=== PATIENT | female | born 1985 | race Caucasian/White ===

== ENCOUNTER → 2018-05-13 | Outpatient (CLI) | payer OTHER ==
--- NOTE | 2018-05-13 09:07 | KCIC ---
Right upper quadrant ultrasound 05/13/2018 INDICATION: Abnormal LFTs COMPARISON STUDY: None FINDINGS: The pancreas is partially visualized. Visualized portions of the pancreas are grossly unremarkable. Visualized portions of the aorta and IVC are unremarkable. The liver is partially obscured. Portal venous flow appears to be in the normal direction. Common duct is mildly prominent measuring between 5 and 6 mm in diameter. Cholelithiasis is noted. No evidence of gallbladder wall thickening or pericholecystic fluid is identified. The liver is normal in size measuring 16.5 cm longitudinally. The liver is mildly diffusely echogenic. A component of hepatic steatosis cannot be excluded. The right kidney measures 10.9 cm in length and is normal in appearance. IMPRESSION: 1. Cholelithiasis without evidence of cholecystitis 2. Mildly increase in hepatic echogenicity. Mild hepatic steatosis not excluded 3. Mild prominence of the common bile duct, nonspecific. Correlate with serum bilirubin levels as clinically indicated. Electronically signed by: Joseluis Roberto MD (05/13/2018 9:04 AM) [id number]
== END | disposition home or self-care (01) ==
LOC: KCIC US 08:05
DX: K80.20 Calculus of gallbladder without cholecystitis without obstruction (principal); K76.0 Fatty (change of) liver, not elsewhere classified
CPT/HCPCS: 76705